=== PATIENT | female | born 1980 | race Caucasian/White ===

== ENCOUNTER 2020-06-28 13:30 | Emergency (ER) | payer MEDICAID ==
[~2020-06-28] VITALS: Ht 180.3 cm; Wt 101.4 kg
[2020-06-28] MEDS ORDERED: ondansetron/PF 4mg/2ml inj IV ONE (14:20)
[2020-06-28] MEDS ORDERED: normal saline 1000ml 1,000 ML IV ONE (14:20)
[2020-06-28] MEDS ORDERED: ketorolac trometh. 30mg/ml inj. IV ONE (14:20)
[2020-06-28] MEDS ORDERED: clindamycin 600mg/D5W 50ml 50 ML IV ONE (14:20)
[2020-06-28 14:52] LABS: BASOPHILS % (AUTO) 0.5 % (0-1); EOSINOPHILS % (AUTO) 0.5 % (0-6); HEMATOCRIT 44.3 % (35.0-45.0); HEMOGLOBIN 14.7 g/dl (12.0-16.0); LYMPHOCYTES # (AUTO) 1.5 X10'3 (1.1-4.8); LYMPHOCYTES % (AUTO) 19.8 % (21-51); MEAN CORPUSCULAR HEMOGLOBIN 29.1 PG (27.0-31.0); MEAN CORPUSCULAR HGB CONC 33.3 g/dL (33.0-36.5); MEAN CORPUSCULAR VOLUME 87.6 FL (78-98); MONOCYTES # (AUTO) 0.5 X10'3 (0-0.9); NEUTROPHILS # (AUTO) 5.4 X10'3 (1.8-7.7); NEUTROPHILS % (AUTO) 72.2 % (42-75); PLATELET COUNT 214 X10'3 (140-440); RED BLOOD COUNT 5.06 X10'6 (4.20-5.60); RED CELL DISTRIBUTION WIDTH 13.7 % (11.5-14.5); WHITE BLOOD COUNT 7.5 X10'3 (4.5-11.0)
[2020-06-28 15:04] LABS: D-DIMER 0.39 MG/L FEU (0-0.50)
[2020-06-28 15:08] LABS: ALANINE AMINOTRANSFERASE 31 U/L (12-78); ALBUMIN 3.9 G/DL (3.4-5.0); ALKALINE PHOSPHATASE 97 IU/L (46-116); ANION GAP 10 (8-16); ASPARTATE AMINO TRANSFERASE 16 U/L (10-37); BILIRUBIN,TOTAL 1.1 MG/DL (0.1-1.0); BLOOD UREA NITROGEN 9 MG/DL (7-18); BUN/CREATININE RATIO 11.1 (6.6-38.0); CHLORIDE 98 MMOL/L (99-107); CREATININE 0.81 MG/DL (0.40-0.90); GLUCOSE 345 MG/DL (70-104); SODIUM 132 MMOL/L (135-145); TOTAL CARBON DIOXIDE 24.1 MMOL/L (24-32); TOTAL PROTEIN 7.8 G/DL (6.4-8.2); eGFR 78 ML/MIN
[2020-06-28 15:09] LABS: POTASSIUM 4.2 MMOL/L (3.5-5.1)
[2020-06-28 15:16] LABS: MAGNESIUM 1.8 MG/DL (1.5-2.4)
[2020-06-28] MEDS ORDERED: ACET-2615 PO (15:20)
[2020-06-28] MEDS ORDERED: CLIN150C8 PO (15:20)
[2020-06-28] MEDS ORDERED: ONDA8TAB6 PO (15:20)
[2020-06-28 16:30] LABS: CLARITY,URINE SLIGHTLY CLOUDY (Clear); COLOR,URINE AMBER (Yellow); GLUCOSE, URINE 500 mg/dl (Neg); KETONES,URINE >=80 mg/dl (Neg); LEUKOCYTE ESTERASE ,URINE NEGATIVE (Neg); NITRITES, URINE NEGATIVE (Neg); OCCULT BLOOD,URINE LARGE (Neg); PROTEIN,URINE 100 mg/dl (Neg)
[2020-06-28 16:31] LABS: URINE HCG NEGATIVE (NEG)
[2020-06-28 16:36] LABS: UA COLLECTION TYPE CLN CATCH MIDSTREAM
[2020-06-28 16:39] LABS: BACTERIA,URINE 1+ /HPF (Neg); RBC,URINE TNTC /HPF (0-2); WBC,URINE 0-4 /HPF (0-4)
[2020-06-28 16:42] LABS: MUCUS STRANDS MODERATE /LPF (Neg); SQUAMOUS EPITHELIAL CELL,UR MANY /LPF (FEW)
[2020-06-28 17:08] VITALS: BP 110/67
== END 2020-06-28 17:13 | disposition home or self-care (01) ==
LOC: ER 13:31
DX: R22.0 Localized swelling, mass and lump, head (principal); K02.9 Dental caries, unspecified; R11.2 Nausea with vomiting, unspecified; E11.9 Type 2 diabetes mellitus without complications; Z86.711 Personal history of pulmonary embolism; Z86.718 Personal history of other venous thrombosis and embolism; Z88.0 Allergy status to penicillin; Z91.041 Radiographic dye allergy status; Z88.8 Allergy status to other drugs, medicaments and biological substances; Z79.2 Long term (current) use of antibiotics; Z79.899 Other long term (current) drug therapy
CPT/HCPCS: 36415; 71045; 80053; 81001; 81025; 83605; 83735; 83880; 84145; 84484; 85025; 85379; 85610; 87040; 96365; 96375; 99284; J1885; J2405; J7030; 93005; J3490

== ENCOUNTER 2023-05-11 05:56 | Day surgery (SDC) | payer MEDICAID ==
[~2023-05-11] VITALS: Ht 180.3 cm; Wt 84.9 kg
[2023-05-11] VITALS (11 sets, daily range): BP systolic 98–114; BP diastolic 46–66; PULSE 77–84; RESP 14–16; TEMP 97.9; O2SAT 96–100
[~2023-05-11 05:56] MED LIST: CLIN-214 PO; ONDA8TAB6 PO
[2023-05-11] MEDS ORDERED: normal saline 1000ml 1,000 ML IV PRN (06:15)
[2023-05-11] MEDS ORDERED: DULA0.75 SQ (07:02)
[2023-05-11] MEDS ORDERED: ALBU90AE2 INH (07:02)
[2023-05-11] MEDS ORDERED: OXYB5TAB16 PO (07:02)
[2023-05-11] MEDS ORDERED: APIX5TAB3 PO (07:02)
[2023-05-11] MEDS ORDERED: GABA-530 PO (07:02)
[2023-05-11] MEDS ORDERED: INSU100I61 SQ (07:02)
[2023-05-11] MEDS ORDERED: BLOO-1718 TOP (07:02)
[2023-05-11] MEDS ORDERED: POTA8CAP20 PO (07:10)
[2023-05-11] MEDS ORDERED: ONDA8TAB13 PO (07:10)
[2023-05-11] MEDS ORDERED: ACET-2778 PO (07:10)
[2023-05-11] MEDS ORDERED: CETI10TA14 PO (07:10)
[2023-05-11] MEDS ORDERED: INSU100I31 SQ (07:10)
[2023-05-11] MEDS ORDERED: ASPI81TA52 PO (07:11)
[2023-05-11 07:38] LABS: BASOPHILS % (AUTO) 0.7 % (0-1); EOSINOPHILS # (AUTO) 0.2 X10'3 (0-0.9); EOSINOPHILS % (AUTO) 4.3 % (0-6); HEMATOCRIT 37.1 % (35.0-45.0); HEMOGLOBIN 12.4 g/dl (12.0-16.0); LYMPHOCYTES # (AUTO) 2.3 X10'3 (1.1-4.8); LYMPHOCYTES % (AUTO) 45.6 % (21-51); MEAN CORPUSCULAR HEMOGLOBIN 29.4 PG (27.0-31.0); MEAN CORPUSCULAR HGB CONC 33.4 g/dL (33.0-36.5); MEAN CORPUSCULAR VOLUME 88.1 FL (78-98); MEAN PLATELET VOLUME 8.6 FL (7.4-10.4); MONOCYTES # (AUTO) 0.4 X10'3 (0-0.9); MONOCYTES % (AUTO) 8.5 % (2-12); NEUTROPHILS # (AUTO) 2.1 X10'3 (1.8-7.7); NEUTROPHILS % (AUTO) 40.9 % (42-75); PLATELET COUNT 193 X10'3 (140-440); RED BLOOD COUNT 4.22 X10'6 (4.20-5.60); RED CELL DISTRIBUTION WIDTH 13.9 % (11.5-14.5); WHITE BLOOD COUNT 5.1 X10'3 (4.5-11.0)
[2023-05-11] MEDS ORDERED: midazolam 1 mg/ML 2ml injection ONE (07:52)
[2023-05-11] MEDS ORDERED: fentaNYL/PF 50MCG/1 ML 2ML syringe ONE ×2 (07:52→11:29)
[2023-05-11] MEDS ORDERED: iohexol 300mg/ml 100ml inj. ONE ×3 (07:53→11:14)
[2023-05-11] MEDS ORDERED: heparin 1,000 UNITS/NS 500ml 500 ML ONE ×2 (07:53→11:31)
[2023-05-11 07:55] LABS: ALBUMIN 3.4 G/DL (3.4-5.0); ANION GAP 10 (8-16); BLOOD UREA NITROGEN 7 MG/DL (7-18); BUN/CREATININE RATIO 11.7 (10.0-20.0); CALCIUM 8.9 MG/DL (8.5-10.1); CHLORIDE 105 MMOL/L (99-107); GLUCOSE 112 MG/DL (70-104); POTASSIUM 3.3 MMOL/L (3.5-5.1); SODIUM 142 MMOL/L (135-145); TOTAL CARBON DIOXIDE 26.8 MMOL/L (24-32); eGFR > 90 ML/MIN
[2023-05-11] MEDS ORDERED: LIDOcaine 1% 30ml preserv. free vial ONE (07:55)
[2023-05-11] MEDS ORDERED: potassium Cl 20 mEq SR tablet PO STA (08:35)
[2023-05-11] MEDS ORDERED: heparin 1,000unit/ml 10ml vial 10 ML ONE (10:37)
[2023-05-11] MEDS ORDERED: dextrose 50%-water 50ml dispensing syringe IV ONE (11:35)
[2023-05-11 15:25] LABS: BASOPHILS % (AUTO) 0.2 % (0-1); EOSINOPHILS # (AUTO) 0.1 X10'3 (0-0.9); EOSINOPHILS % (AUTO) 2.8 % (0-6); HEMATOCRIT 34.1 % (35.0-45.0); HEMOGLOBIN 11.3 g/dl (12.0-16.0); LYMPHOCYTES # (AUTO) 1.6 X10'3 (1.1-4.8); LYMPHOCYTES % (AUTO) 32.2 % (21-51); MEAN CORPUSCULAR HEMOGLOBIN 29.3 PG (27.0-31.0); MEAN CORPUSCULAR HGB CONC 33.2 g/dL (33.0-36.5); MEAN CORPUSCULAR VOLUME 88.1 FL (78-98); MEAN PLATELET VOLUME 8.2 FL (7.4-10.4); MONOCYTES # (AUTO) 0.4 X10'3 (0-0.9); MONOCYTES % (AUTO) 7.9 % (2-12); NEUTROPHILS # (AUTO) 2.9 X10'3 (1.8-7.7); NEUTROPHILS % (AUTO) 56.9 % (42-75); PLATELET COUNT 174 X10'3 (140-440); RED BLOOD COUNT 3.87 X10'6 (4.20-5.60); RED CELL DISTRIBUTION WIDTH 13.7 % (11.5-14.5); WHITE BLOOD COUNT 5.1 X10'3 (4.5-11.0)
== END 2023-05-11 16:45 | disposition home or self-care (01) ==
LOC: SSTAY O 05:56
PROVIDERS: ATTEND Radiology Vascular & Interventional Radiology
DX: I82.523 Chronic embolism and thrombosis of iliac vein, bilateral (principal); I82.533 Chronic embolism and thrombosis of popliteal vein, bilateral; I82.511 Chronic embolism and thrombosis of right femoral vein; I82.551 Chronic embolism and thrombosis of right peroneal vein; E11.9 Type 2 diabetes mellitus without complications; D68.51 Activated protein C resistance; I87.1 Compression of vein; Z88.0 Allergy status to penicillin; Z91.041 Radiographic dye allergy status; Z88.8 Allergy status to other drugs, medicaments and biological substances; Z79.899 Other long term (current) drug therapy; Z79.01 Long term (current) use of anticoagulants; Z79.82 Long term (current) use of aspirin; Z79.4 Long term (current) use of insulin
CPT/HCPCS: 36005; 36415; 37248; 37249; 75822; 76937; 80048; 82948; 85025; 85347; 85610; 99152; 99153; C1769; J1644; J2250; J3010; J3490; J7030; Q9967; A4620; C1725; C1892; C1894

== ENCOUNTER 2023-06-20 07:02 | Day surgery (SDC) | payer MEDICAID ==
[2023-06-20] VITALS (9 sets, daily range): BP systolic 102–116; BP diastolic 59–79; PULSE 67–79; RESP 14–16; TEMP 97.7; O2SAT 97–100
[~2023-06-20] VITALS: Ht 180.3 cm; Wt 90.0 kg
[~2023-06-20 07:02] MED LIST changes: +ACET-2778 PO; +ALBU90AE2 INH; +APIX5TAB3 PO; +ASPI81TA52 PO; +BLOO-1718 TOP; +CETI10TA14 PO; +DULA0.75 SQ; +GABA-530 PO; +INSU100I31 SQ; +INSU100I61 SQ; +ONDA8TAB13 PO; +OXYB5TAB16 PO; +POTA8CAP20 PO
[2023-06-20] MEDS ORDERED: normal saline 1000ml 1,000 ML IV PRN (07:25)
[2023-06-20 08:11] LABS: ALBUMIN 3.1 G/DL (3.4-5.0); ANION GAP 6 (8-16); BLOOD UREA NITROGEN 9 MG/DL (7-18); BUN/CREATININE RATIO 14.5 (10.0-20.0); CALCIUM 8.8 MG/DL (8.5-10.1); CHLORIDE 104 MMOL/L (99-107); CREATININE 0.62 MG/DL (0.40-0.90); GLUCOSE 143 MG/DL (70-104); POTASSIUM 3.6 MMOL/L (3.5-5.1); SODIUM 137 MMOL/L (135-145); TOTAL CARBON DIOXIDE 26.8 MMOL/L (24-32); eCRCL 129 ML/MIN; eGFR > 90 ML/MIN
[2023-06-20 08:12] LABS: BASOPHILS % (AUTO) 0.6 % (0-1); EOSINOPHILS # (AUTO) 0.2 X10'3 (0-0.9); EOSINOPHILS % (AUTO) 4.3 % (0-6); HEMATOCRIT 32.9 % (35.0-45.0); LYMPHOCYTES # (AUTO) 1.8 X10'3 (1.1-4.8); LYMPHOCYTES % (AUTO) 37.8 % (21-51); MEAN CORPUSCULAR HEMOGLOBIN 29.7 PG (27.0-31.0); MEAN CORPUSCULAR HGB CONC 33.4 g/dL (33.0-36.5); MEAN PLATELET VOLUME 8.3 FL (7.4-10.4); MONOCYTES # (AUTO) 0.3 X10'3 (0-0.9); MONOCYTES % (AUTO) 6.8 % (2-12); NEUTROPHILS # (AUTO) 2.4 X10'3 (1.8-7.7); NEUTROPHILS % (AUTO) 50.5 % (42-75); PLATELET COUNT 200 X10'3 (140-440); RED CELL DISTRIBUTION WIDTH 13.9 % (11.5-14.5); WHITE BLOOD COUNT 4.8 X10'3 (4.5-11.0)
[2023-06-20 08:14] LABS: INR 1.1 INR; PROTHROMBIN TIME 11.4 SECONDS (9.0-12.0)
[2023-06-20] MEDS ORDERED: heparin 1,000 UNITS/NS 500ml 500 ML ONE (08:17)
[2023-06-20] MEDS ORDERED: iohexol 300mg/ml 100ml inj. ONE ×2 (08:17→10:54)
[2023-06-20] MEDS ORDERED: fentaNYL/PF 50MCG/1 ML 2ML syringe ONE ×2 (08:17→10:18)
[2023-06-20] MEDS ORDERED: midazolam 1 mg/ML 2ml injection ONE ×2 (08:17→10:17)
[2023-06-20] MEDS ORDERED: LIDOcaine 1% 30ml preserv. free vial ONE (08:17)
[2023-06-20] MEDS ORDERED: CLOT30CR24 TOP (08:40)
[2023-06-20] MEDS ORDERED: ACET-3209 PO (08:40)
[2023-06-20] MEDS ORDERED: FLUC100T25 PO (08:40)
[2023-06-20] MEDS ORDERED: ondansetron/PF 4mg/2ml inj ONE (11:35)
== END 2023-06-20 14:00 | disposition home or self-care (01) ==
LOC: SSTAY O 07:02
PROVIDERS: ATTEND Radiology Vascular & Interventional Radiology
DX: T82.856A Stenosis of peripheral vascular stent, initial encounter (principal); I87.1 Compression of vein; D68.51 Activated protein C resistance; E11.9 Type 2 diabetes mellitus without complications; Z79.4 Long term (current) use of insulin; Z88.0 Allergy status to penicillin; Z88.8 Allergy status to other drugs, medicaments and biological substances; Z91.040 Latex allergy status; Z79.899 Other long term (current) drug therapy; Z79.01 Long term (current) use of anticoagulants; Y83.8 Other surgical procedures as the cause of abnormal reaction of the patient, or of later complication, without mention of misadventure at the time of the procedure; Y92.89 Other specified places as the place of occurrence of the external cause
CPT/HCPCS: 36005; 36415; 37248; 75820; 76937; 80048; 82948; 85025; 85610; 99152; 99153; C1725; C1769; J1644; J2250; J2405; J3010; J3490; J7030; Q9967; A4620; A6213; C1894